=== PATIENT | female | born 1975 | race Caucasian/White ===

== ENCOUNTER 2023-03-14 16:48 | Emergency (ER) | payer OTHER ==
[~2023-03-14] VITALS: Ht 162.6 cm; Wt 63.5 kg
[2023-03-14] MEDS ORDERED: diphenhydrAMINE 50 MG/1 ML VIAL ONE (16:59)
[2023-03-14] MEDS ORDERED: LORAZEPAM 2 MG/1 ML VIAL ONE (16:59)
[2023-03-14] MEDS ORDERED: diphenhydrAMINE 50 MG/1 ML VIAL IV ONE (17:00)
[2023-03-14] MEDS ORDERED: IV NORMAL SALINE 500 ML BAG IV ONE (17:00)
[2023-03-14] MEDS ORDERED: LORAZEPAM 2 MG/1 ML VIAL IV ONE (17:00)
--- NOTE | 2023-03-14 17:00 | NUR ---
Pt seen by MD for bedside eval. Safety measures in place. Will continue to monitor.
[2023-03-14 17:18] LABS: MEAN CORPUSCULAR HEMOGLOBIN 28.4 uug (24.7-32.8); MEAN CORPUSCULAR VOLUME 85.9 fL (75.5-95.3); PLATELET COUNT (AUTO) 152 K/uL (179-408)
[2023-03-14 17:33] LABS: CREATININE 0.7 mg/dL (0.6-1.3); POTASSIUM 3.5 mmol/L (3.5-5.1)
[2023-03-14 17:42] LABS: BILIRUBIN,TOTAL 0.2 mg/dL (0.2-1.0); TOTAL PROTEIN, SERUM 8.7 g/dL (6.4-8.2)
[2023-03-14 17:52] LABS: THYROID STIMULATING HORMONE 1.491 mIU/mL (0.358-3.740)
[2023-03-14 17:58] LABS: *BILIRUBIN,URIN NEGATIVE (NEGATIVE); *BLOOD, URINE NEGATIVE (NEGATIVE); *CLARITY,URINE CLEAR (CLEAR); *COLOR,URINE YELLOW (YELLOW); *KETONES,URINE NEGATIVE (NEGATIVE); *UROBILINOGEN,URINE 0.2 E.U./dl (NORMAL); LEUKOCYTE ESTERASE ,URINE NEGATIVE (NEGATIVE); NITRITE, URINE NEGATIVE (NEGATIVE); UGLUCOSE NEGATIVE (NEGATIVE)
[2023-03-14 18:04] LABS: *URINE HCG, QUAL NEGATIVE (NEGATIVE)
[2023-03-14] MEDS ORDERED: ACETAMINOPHEN 325 MG TABLET PO ONE (18:30)
[2023-03-14] MEDS ORDERED: METOCLOPRAMIDE HCL 10 MG/2 ML VIAL IV ONE (18:30)
[2023-03-14] MEDS ORDERED: KETOROLAC TROMETHAMINE 15 MG INJ IVP ONE (18:30)
[2023-03-14] MEDS ORDERED: ACETAMINOPHEN 325 MG TABLET ONE (18:35)
[2023-03-14] MEDS ORDERED: METOCLOPRAMIDE HCL 10 MG/2 ML VIAL ONE (18:36)
[2023-03-14] MEDS ORDERED: KETOROLAC TROMETHAMINE 15 MG INJ ONE (18:36)
--- NOTE | 2023-03-14 19:07 | NUR ---
Patient discharged to home in stable condition. Written and verbal after care instructions given. Patient verbalizes understanding of instructions. Stressed follow up or return to ER for worsening s/s.
[2023-03-14 19:08] VITALS: BP 148/69; TEMP 98.4; O2SAT 100
--- NOTE | 2023-03-14 19:08 | NUR ---
REPORT RECIEVED FROM JOSE BUTTS.
== END 2023-03-14 19:08 | disposition home or self-care (01) ==
LOC: ER 17:04
DX: R20.2 Paresthesia of skin (principal); M62.838 Other muscle spasm; R06.4 Hyperventilation; E78.5 Hyperlipidemia, unspecified; R07.89 Other chest pain
CPT/HCPCS: 99285; 96374; 96375; 70450; 71045; 96361; 80053; 81003; 82550; 82962; 84703; 84439; 84443; 85025; 84484; 36415; 93005; J1200; J1885; J2060; J2765; J7040; A4663